=== PATIENT | female | born 1960 | race Caucasian/White ===

== ENCOUNTER → 2019-05-22 | Outpatient (CLI) | payer OTHER | END | disposition home or self-care (01) | LOC: PLD 07:48 → LAB SHORT 07:48 | DX: D04.61 Carcinoma in situ of skin of right upper limb, including shoulder (principal) | CPT/HCPCS: 88305 ==

== ENCOUNTER → 2019-05-31 | Outpatient (CLI) | payer OTHER | LOC: LAB SHORT 10:20 → PLD 10:20 | DX: C44.621 Squamous cell carcinoma of skin of unspecified upper limb, including shoulder (principal) | CPT/HCPCS: 88305 ==

== ENCOUNTER 2020-09-05 08:04 | Day surgery (SDC) | payer OTHER ==
[~2020-09-05] VITALS: Ht 177.8 cm; Wt 124.6 kg
[~2020-09-05 08:04] MED LIST: ALLEGRA ALLERG180 MG PO; ATEN50 PO; Amitriptyline H10 MG PO; TRIAMCINOL IM
== END 2020-09-05 10:01 | disposition home or self-care (01) ==
LOC: ORSCSDS 08:04
PROVIDERS: Surgery
PROC: 0DBP8ZX Excision of Rectum, Via Natural or Artificial Opening Endoscopic, Diagnostic (ICD-10-PCS; principal; 2020-09-05 09:30)
DX: Z12.11 Encounter for screening for malignant neoplasm of colon (principal); K62.1 Rectal polyp; I10 Essential (primary) hypertension; E66.9 Obesity, unspecified; Z68.41 Body mass index [BMI] 40.0-44.9, adult; Z79.899 Other long term (current) drug therapy
CPT/HCPCS: 88305; J2704; J7120